=== PATIENT | male | born 1980 | race Caucasian/White ===

== ENCOUNTER 2019-01-27 11:38 | Emergency (ER) | payer MEDICAID ==
[~2019-01-27] VITALS: Ht 175.3 cm; Wt 90.7 kg
[2019-01-27 12:19] LABS: ABSOLUTE BASOPHILS 0.1 thou/uL (0.0-0.2); ABSOLUTE LYMPHOCYTES 1.8 thou/uL (0.8-5.3); ABSOLUTE MONOCYTES 0.5 thou/uL (0.0-1.2); ABSOLUTE NEUTROPHILS 5.6 thou/uL (1.6-8.1); BASOPHILS 1.4 %; EOSINOPHILS 0.2 %; HEMATOCRIT 45.9 % (42.0-52.0); HEMOGLOBIN 15.8 gm/dL (14.0-18.0); MCH 30.5 pg (26.0-34.0); MCHC 34.5 g/dL (28.0-37.0); MCV 88.3 fL (80.0-100.0); MONOCYTES 6.5 %; MPV 7.3 fl. (7.2-11.1); NUCLEATED RBCS 0 /100WBC; PLATELET COUNT* 248 thou/uL (150-400); POLYS 69.9 %; WBC 8.1 thou/uL (4.0-11.0)
[2019-01-27 12:33] LABS: APTT 26.6 Seconds (25.0-31.3); INR 1.1; PROTIME 11.7 Seconds (9.20-11.50)
[2019-01-27 12:36] LABS: CALCIUM 8.8 mg/dL (8.5-10.1); CREATININE 1.2 mg/dL (0.6-1.3); POTASSIUM 3.6 mmol/L (3.5-5.1); TOTAL BILIRUBIN 0.8 mg/dL (<0.1-1.0); TOTAL PROTEIN 8.4 g/dL (6.4-8.2)
[2019-01-27 12:40] LABS: MAGNESIUM 1.2 mg/dL (1.8-2.4); PHOSPHORUS* 4.2 mg/dL (2.5-4.9)
[2019-01-27 14:06] LABS: URINE BLOOD TRACE (Negative); URINE CLARITY CLEAR; URINE COLOR YELLOW; URINE GLUCOSE-RANDOM NEGATIVE (Negative); URINE KETONES NEGATIVE (Negative); URINE LEUKOCYTES-REFLEX NEGATIVE (Negative); URINE NITRITE-REFLEX NEGATIVE (Negative); URINE PROTEIN 2+ (Negative); URINE SPECIFIC GRAVITY >= 1.030 (1.005-1.030); URINE UROBILINOGEN 0.2 E.U./dl (0.2-1.0)
[2019-01-27 14:14] LABS: AMP/METHAMP Negative (Negative); BARBITURATES Negative (Negative); BENZODIAZEPINES Negative (Negative); COCAINE Negative (Negative); METHADONE Negative (Negative); OPIATES Negative (Negative); PCP Negative (Negative); THC POSITIVE (Negative)
[2019-01-27 14:18] LABS: BACTERIA-REFLEX None Seen /HPF (None Seen); CASTS None Seen /LPF (None Seen); CRYSTALS None Seen /LPF (None Seen); ICTOTEST (BILI CONFIRMATORY) Negative (Negative); MUCUS >6 Heavy strn/LPF (None Seen); SQUAMOUS 0-3 Few /LPF (0-3); URINE BILIRUBIN 1+ (Negative); URINE RBC None Seen /HPF (0-2); URINE WBC-REFLEX 0-5 Rare /HPF (0-5)
[2019-01-27] MEDS ORDERED: NEURONTIN 400400 M1 PO (14:24)
[2019-01-27] MEDS ORDERED: VISTARIL 25 MG25 M1 PO (14:24)
[2019-01-27 14:37] VITALS: BP 162/111
== END 2019-01-27 14:38 | disposition home or self-care (01) ==
LOC: M.ERS 11:38
PROVIDERS: Nurse Practitioner Family
DX: F10.10 Alcohol abuse, uncomplicated (principal); Y90.9 Presence of alcohol in blood, level not specified; R11.10 Vomiting, unspecified

== ENCOUNTER 2019-06-12 19:04 | Emergency (ER) | payer MEDICAID ==
[~2019-06-12] VITALS: Ht 175.3 cm; Wt 86.2 kg
[~2019-06-12 19:04] MED LIST: NEURONTIN 400400 M1 PO; VISTARIL 25 MG25 M1 PO
[2019-06-12] MEDS ORDERED: ZOLOFT50 MG PO (19:11)
[2019-06-12 19:28] LABS: ABSOLUTE BASOPHILS 0.1 thou/uL (0.0-0.2); ABSOLUTE LYMPHOCYTES 1.8 thou/uL (0.8-5.3); ABSOLUTE MONOCYTES 0.8 thou/uL (0.0-1.2); ABSOLUTE NEUTROPHILS 4.4 thou/uL (1.6-8.1); BASOPHILS 1.1 %; EOSINOPHILS 0.5 %; HEMATOCRIT 39.8 % (42.0-52.0); HEMOGLOBIN 13.4 gm/dL (14.0-18.0); LYMPHOCYTES 25.9 %; MCH 29.9 pg (26.0-34.0); MCHC 33.8 g/dL (28.0-37.0); MCV 88.6 fL (80.0-100.0); MONOCYTES 10.7 %; MPV 6.7 fl. (7.2-11.1); NUCLEATED RBCS 0 /100WBC; PLATELET COUNT* 355 thou/uL (150-400); POLYS 61.8 %; RBC 4.49 mil/uL (4.50-6.00); RDW-CV 14.5 % (10.5-14.5); WBC 7.1 thou/uL (4.0-11.0)
[2019-06-12 19:35] LABS: PROTIME 10.2 Seconds (9.20-11.50)
[2019-06-12 19:37] LABS: CALCIUM 9.1 mg/dL (8.5-10.1); CREATININE 0.8 mg/dL (0.6-1.3); POTASSIUM 4.1 mmol/L (3.5-5.1)
[2019-06-12 19:41] LABS: ALBUMIN 4.1 g/dL (3.4-5.0); MAGNESIUM 1.7 mg/dL (1.8-2.4); TOTAL BILIRUBIN 1.1 mg/dL (<0.1-1.0); TOTAL PROTEIN 8.7 g/dL (6.4-8.2)
[2019-06-12 20:12] LABS: AMP/METHAMP POSITIVE (Negative); BARBITURATES Negative (Negative); BENZODIAZEPINES Negative (Negative); COCAINE Negative (Negative); METHADONE Negative (Negative); OPIATES Negative (Negative); PCP Negative (Negative); THC POSITIVE (Negative)
[2019-06-12] MEDS ORDERED: CHLORDIAZEPOXID25 M1 PO (21:15)
[2019-06-12] MEDS ORDERED: ZOFRAN ODT4 MG PO (21:15)
[2019-06-12 22:13] VITALS: BP 143/94
--- NOTE | 2019-06-13 15:53 | EKG ---
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[place] : 1980 Requested By: Elizabeth Osullivan Order Number: [id number] MD: Jacoby Castillo Measurements Intervals [place] Rate: 95 P: 37 PA: 141 QRS: -23 QRSD: 92 T: 11 QT: 368 QTc: 463 Interpretive Statements Sinus rhythm Multiple ventricular premature complexes Borderline left axis deviation No previous ECG available for comparison Electronically Signed On 06-13-2019 15:53:28 CDT by Jacoby Castillo [email or web address] <ELECTRONICALLY SIGNED> By: Jacoby Castillo MD, [facility] 06/13/19 1553 1919 1919 Jacoby Castillo MD, FACC /EPI
== END 2019-06-12 22:14 | disposition home or self-care (01) ==
LOC: M.ERS 19:04
PROVIDERS: Emergency Medicine
DX: F10.239 Alcohol dependence with withdrawal, unspecified (principal)

== ENCOUNTER 2019-09-14 02:29 | Emergency (ER) | payer OTHER ==
[~2019-09-14] VITALS: Ht 172.7 cm; Wt 79.4 kg
[~2019-09-14 02:29] MED LIST changes: +CHLORDIAZEPOXID25 M1 PO; +ZOFRAN ODT4 MG PO; +ZOLOFT50 MG PO
[2019-09-14] MEDS ORDERED: OMEPRAZOLE40 MG PO (02:40)
[2019-09-14] MEDS ORDERED: TRAZODONE 150150 M1 PO (02:41)
[2019-09-14 02:58] LABS: ABSOLUTE BASOPHILS 0.1 thou/uL (0.0-0.2); ABSOLUTE EOSINOPHILS 0.1 thou/uL (0.0-0.7); ABSOLUTE LYMPHOCYTES 2.5 thou/uL (0.8-5.3); ABSOLUTE MONOCYTES 0.4 thou/uL (0.0-1.2); ABSOLUTE NEUTROPHILS 2.4 thou/uL (1.6-8.1); BASOPHILS 2.3 %; EOSINOPHILS 1.8 %; HEMATOCRIT 42.1 % (42.0-52.0); HEMOGLOBIN 14.6 gm/dL (14.0-18.0); LYMPHOCYTES 45.2 %; MCH 30.5 pg (26.0-34.0); MCHC 34.7 g/dL (28.0-37.0); MONOCYTES 7.7 %; NUCLEATED RBCS 0 /100WBC; PLATELET COUNT* 336 thou/uL (150-400); RBC 4.79 mil/uL (4.50-6.00); RDW-CV 17.2 % (10.5-14.5); WBC 5.6 thou/uL (4.0-11.0)
[2019-09-14 03:01] LABS: URINE BILIRUBIN NEGATIVE (Negative); URINE BLOOD NEGATIVE (Negative); URINE CLARITY CLEAR; URINE COLOR YELLOW; URINE GLUCOSE-RANDOM NEGATIVE (Negative); URINE KETONES NEGATIVE (Negative); URINE LEUKOCYTES-REFLEX NEGATIVE (Negative); URINE NITRITE-REFLEX NEGATIVE (Negative); URINE PROTEIN 1+ (Negative); URINE SPECIFIC GRAVITY >= 1.030 (1.005-1.030)
[2019-09-14 03:04] LABS: CALCIUM 8.7 mg/dL (8.5-10.1); POTASSIUM 3.2 mmol/L (3.5-5.1)
[2019-09-14 03:09] LABS: ALBUMIN 3.5 g/dL (3.4-5.0); MAGNESIUM 1.7 mg/dL (1.8-2.4); TOTAL BILIRUBIN 0.5 mg/dL (<0.1-1.0); TOTAL PROTEIN 7.7 g/dL (6.4-8.2)
[2019-09-14 03:10] LABS: AMP/METHAMP Negative (Negative); BARBITURATES Negative (Negative); BENZODIAZEPINES Negative (Negative); COCAINE Negative (Negative); METHADONE Negative (Negative); OPIATES Negative (Negative); PCP Negative (Negative); THC POSITIVE (Negative)
[2019-09-14] MEDS ORDERED: K-DUR 20 MEQ T20 MEQ PO (03:36)
[2019-09-14] MEDS ORDERED: MAGNESIUM OXID200 MG PO (03:36)
[2019-09-14] MEDS ORDERED: ZOFRAN ODT4 MG PO (03:36)
[2019-09-14 04:22] VITALS: BP 142/95
--- NOTE | 2019-09-14 14:31 | EKG ---
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 : 1980 Requested By: Ever Taylor Order Number: [id number] MD: Jacoby Castillo Measurements Intervals [place] Rate: 88 P: 47 [place]: 151 QRS: -27 QRSD: 93 T: 29 QT: 394 QTc: 477 Interpretive Statements Sinus rhythm Borderline left axis deviation Abnormal R-wave progression, late transition Borderline prolonged QT interval Compared to ECG 06/12/2019 19:19:04 Ventricular premature complex(es) no longer present Electronically Signed On 09-14-2019 14:30:50 CDT by Jacoby Castillo [email or web address] <ELECTRONICALLY SIGNED> By: Jacoby Castillo MD, FACC 09/14/19 1430 0331 0331 Jacoby Castillo MD, FAC /EPI
== END 2019-09-14 04:10 | disposition home or self-care (01) ==
LOC: M.ERS 02:29
PROVIDERS: Emergency Medicine
DX: F10.10 Alcohol abuse, uncomplicated (principal); Y90.7 Blood alcohol level of 200-239 mg/100 ml; E87.6 Hypokalemia; E83.42 Hypomagnesemia; R11.2 Nausea with vomiting, unspecified; F17.210 Nicotine dependence, cigarettes, uncomplicated; Z79.899 Other long term (current) drug therapy

== ENCOUNTER 2020-10-09 14:25 | Emergency (ER) | payer OTHER ==
[~2020-10-09] VITALS: Ht 175.3 cm; Wt 81.7 kg
[~2020-10-09 14:25] MED LIST changes: +K-DUR 20 MEQ T20 MEQ PO; +MAGNESIUM OXID200 MG PO; +OMEPRAZOLE40 MG PO; +TRAZODONE 150150 M1 PO
[2020-10-09] MEDS ORDERED: SERTRALINE HCL100 MG PO (14:42)
[2020-10-09 15:34] LABS: ABSOLUTE LYMPHOCYTES 1.4 thou/uL (0.8-5.3); ABSOLUTE MONOCYTES 0.6 thou/uL (0.0-1.2); BASOPHILS 0.7 %; EOSINOPHILS 0.3 %; HEMOGLOBIN 13.4 gm/dL (14.0-18.0); MCHC 33.6 g/dL (28.0-37.0); MCV 89.3 fL (80.0-100.0); MONOCYTES 8.5 %; NUCLEATED RBCS 0 /100WBC; PLATELET COUNT* 304 thou/uL (150-400); POLYS 70.5 %; RBC 4.48 mil/uL (4.50-6.00); RDW-CV 15.1 % (10.5-14.5); WBC 7.1 thou/uL (4.0-11.0)
[2020-10-09 15:42] LABS: CALCIUM 9.3 mg/dL (8.5-10.1); POTASSIUM 3.7 mmol/L (3.5-5.1)
[2020-10-09 15:47] LABS: ALBUMIN 3.9 g/dL (3.4-5.0); TOTAL BILIRUBIN 1.3 mg/dL (<0.1-1.0); TOTAL PROTEIN 8.2 g/dL (6.4-8.2)
[2020-10-09] MEDS ORDERED: ATIVAN1 M1 PO (15:50)
[2020-10-09 16:20] VITALS: BP 134/86
== END 2020-10-09 16:37 | disposition home or self-care (01) ==
LOC: M.ERS 14:25
PROVIDERS: Family Medicine
DX: F10.129 Alcohol abuse with intoxication, unspecified (principal); Y90.0 Blood alcohol level of less than 20 mg/100 ml

== ENCOUNTER 2021-01-26 22:35 | Emergency (ER) | payer OTHER ==
[~2021-01-26] VITALS: Ht 175.3 cm; Wt 86.2 kg
[~2021-01-26 22:35] MED LIST changes: +ATIVAN1 M1 PO; +SERTRALINE HCL100 MG PO
[2021-01-26] MEDS ORDERED: DESYREL150 MG PO (22:52)
[2021-01-26 23:16] LABS: ABSOLUTE BASOPHILS 0.1 thou/uL (0.0-0.2); ABSOLUTE EOSINOPHILS 0.1 thou/uL (0.0-0.7); ABSOLUTE LYMPHOCYTES 1.8 thou/uL (0.8-5.3); ABSOLUTE MONOCYTES 0.6 thou/uL (0.0-1.2); ABSOLUTE NEUTROPHILS 4.6 thou/uL (1.6-8.1); BASOPHILS 0.9 %; EOSINOPHILS 1.5 %; HEMATOCRIT 36.3 % (42.0-52.0); HEMOGLOBIN 12.1 gm/dL (14.0-18.0); LYMPHOCYTES 25.4 %; MCH 31.1 pg (26.0-34.0); MCHC 33.3 g/dL (28.0-37.0); MCV 93.2 fL (80.0-100.0); MONOCYTES 8.3 %; MPV 6.3 fl. (7.2-11.1); NUCLEATED RBCS 0 /100WBC; PLATELET COUNT* 397 thou/uL (150-400); POLYS 63.9 %; RDW-CV 17.7 % (10.5-14.5); WBC 7.2 thou/uL (4.0-11.0)
[2021-01-26 23:21] LABS: CALCIUM 8.8 mg/dL (8.5-10.1); CREATININE 1.3 mg/dL (0.6-1.3); POTASSIUM 3.4 mmol/L (3.5-5.1)
[2021-01-26 23:22] LABS: PROTIME 10.3 Seconds (9.20-11.50)
[2021-01-26 23:32] LABS: ALBUMIN 3.3 g/dL (3.4-5.0); MAGNESIUM 1.9 mg/dL (1.8-2.4); TOTAL BILIRUBIN 0.5 mg/dL (<0.1-1.0); TOTAL PROTEIN 7.5 g/dL (6.4-8.2)
[2021-01-27] MEDS ORDERED: ATIVAN0.5 M1 PO (02:07)
[2021-01-27 02:20] VITALS: BP 136/88
--- NOTE | 2021-01-27 11:14 | EKG ---
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 : 1980 Requested By: Elizabeth Osullivan Order Number: [id number] MD: Jeff Carrasquillo Measurements Intervals [place] Rate: 98 P: 51 MT: 157 QRS: -11 QRSD: 89 T: 11 QT: 349 QTc: 446 Interpretive Statements Sinus rhythm Compared to ECG 09/14/2019 03:31:58 No significant changes Electronically Signed On 01-27-2021 11:14:31 [employer] WORK[employer] by Jeff Carrasquillo [email or web address] <ELECTRONICALLY SIGNED> By: Jeff Carrasquillo MD, [facility] 01/27/21 1114 2324 2324 Jeff Carrasquillo MD, [facility] /EPI
== END 2021-01-27 02:20 | disposition left against medical advice (07) ==
LOC: M.ERS 22:35
PROVIDERS: Emergency Medicine
DX: F10.10 Alcohol abuse, uncomplicated (principal); Y90.0 Blood alcohol level of less than 20 mg/100 ml; R56.9 Unspecified convulsions